=== PATIENT | female | born 1950 | race Caucasian/White ===

== ENCOUNTER 2024-02-18 10:36 | Outpatient (CLI) | payer BC, MEDICARE | END 2024-02-18 23:59 | disposition home or self-care (01) | LOC: MRI02 10:36 | PROVIDERS: ATTEND Podiatrist Foot & Ankle Surgery | DX: S93.102A Unspecified subluxation of left toe(s), initial encounter (principal); M19.071 Primary osteoarthritis, right ankle and foot; M19.072 Primary osteoarthritis, left ankle and foot; M20.11 Hallux valgus (acquired), right foot; M25.375 Other instability, left foot; M77.41 Metatarsalgia, right foot; M25.374 Other instability, right foot; M77.42 Metatarsalgia, left foot; M20.21 Hallux rigidus, right foot; M20.12 Hallux valgus (acquired), left foot; M20.42 Other hammer toe(s) (acquired), left foot; M25.475 Effusion, left foot; M79.671 Pain in right foot; M79.672 Pain in left foot; X58.XXXA Exposure to other specified factors, initial encounter; Y93.89 Activity, other specified; Y92.89 Other specified places as the place of occurrence of the external cause; Y99.8 Other external cause status | CPT/HCPCS: 73718 ==